=== PATIENT | female | born 1995 | race Asian ===

== ENCOUNTER → 2025-03-12 16:17 | Outpatient (CLI) | payer OTHER, SELFPAY ==
--- NOTE | 2025-03-12 16:22 | DI.US.S_ITS ---
PROCEDURE: US PELVIC COMPLETE INDICATIONS: Pelvic pain; r/o fibroids and ovarian cysts TECHNIQUE: Real-time scanning was performed of the pelvic organs, with image documentation. Additional endovaginal scanning was necessary due to incomplete visualization of the adnexal and endometrial structures by transabdominal scanning. COMPARISON: None. FINDINGS: Uterus: Uterus is retroverted and normal in size at 8.3 x 4.2 x 6.3 cm. The myometrium is heterogeneous. The endometrium measures 5.6 mm combined thickness. Mid posterior intramural fibroid measuring 2.4 x 1.9 x 3.1 cm. Ovaries: The right ovary measures 3.3 x 3.3 x 1.9 cm, with a calculated ovarian volume of 11.0 cc. The left ovary measures 4.2 x 3.3 x 2.2 cm, with a calculated ovarian volume of 15.3 cc. The ovaries have a normal sonographic appearance. Greater than 12 follicles can be seen in each ovary. No adnexal masses are seen. Other: No pathologic free abdominal or pelvic fluid. IMPRESSION: Greater than 12 follicular cysts bilaterally which can be associated with polycystic ovarian morphology, recommend clinical correlation. Intramural fibroid measuring 3.1 cm. We strive to produce accurate, complete, and clear reports of imaging services. To assist us in improving patient care, this report was composed using standard report templates and voice recognition software. Therefore, it may contain abnormal punctuation, insertions and/or omissions. Occasional wrong-word or sound-alike substitutions may occur. Though we review the report and make efforts to correct it, we do recommend that the report be read carefully in proper context to recognize any text inaccuracies. Approved by: Willem Block M.D. on 03/12/2025 at 19:17
== END ==
LOC: US 16:21
PROVIDERS: PCP Preventive Medicine Aerospace Medicine; Referring Provider Obstetrics & Gynecology; Visit Provider Obstetrics & Gynecology
DX: R10.20 Pelvic and perineal pain unspecified side (principal); D25.1 Intramural leiomyoma of uterus
CPT/HCPCS: 76830; 76856

== ENCOUNTER → 2025-03-14 11:33 | Outpatient (CLI) | payer OTHER, SELFPAY ==
[2025-03-14 12:31] LABS: Hemoglobin A1C% w Est Avg Glu 5.3 % (4.0-6.0)
[2025-03-14 13:10] LABS: TSH w/ Reflex to FT4 1.25 uIU/mL (0.47-4.68); Thyroid Stimulating Hormone 1.25 uIU/mL (0.47-4.68)
== END ==
PROVIDERS: PCP Preventive Medicine Aerospace Medicine; Referring Provider Obstetrics & Gynecology; Visit Provider Obstetrics & Gynecology
DX: Z31.69 Encounter for other general counseling and advice on procreation (principal)
CPT/HCPCS: 36415; 82397; 83036; 84144; 84443